=== PATIENT | male | born 1935 | race Caucasian/White ===

== ENCOUNTER 2017-06-21 14:55 | Emergency (ER) | payer MEDICARE, OTHER ==
[2017-06-21] MEDS ORDERED: ASPIRIN 81 MG CHEWABLE CTB PO ONE (14:59)
[2017-06-21 15:13] LABS: BASOPHILS % (AUTO) 1 % (0-3); EOSINOPHILS % (AUTO) 8 % (0-9); HEMATOCRIT 34 % (39-53); MEAN CORPUSCULAR HGB CONC 34.8 gm/dl (32.0-36.0); MEAN CORPUSCULAR VOLUME 95 fL (80-100); MONOCYTES % (AUTO) 9.6 % (0-12); NEUTROPHILS % (AUTO) 64.1 % (37-80)
[2017-06-21] MEDS ORDERED: MORPHINE SULFATE 10 MG/ML SOL IV ONE (15:18)
[2017-06-21] MEDS ORDERED: SODIUM CHLORIDE 0.9% FLUSH 10 ML SOL IV PRN (15:20)
[2017-06-21] MEDS ORDERED: MORPHINE SULFATE 10 MG/ML SOL ONE (15:21)
[2017-06-21] MEDS ORDERED: MAGNESIUM HYDROXIDE 30 ML SUS PO PRN (15:30)
[2017-06-21 15:31] LABS: CALCIUM 9.3 mg/dl (8.5-10.1); POTASSIUM 4.1 mMol/L (3.5-5.1)
[2017-06-21] MEDS ORDERED: MAGNESIUM HYDROXIDE 30 ML SUS ONE (15:32)
[2017-06-21] MEDS: SODIUM CHLORIDE 0.9% 1000ML 1,000 ML IV SCH ×2 (15:37→16:00)
[2017-06-21 16:09] VITALS: TEMP 97.2
[2017-06-21 17:08] VITALS: BP 109/61; PULSE 50; RESP 20; O2SAT 96
== END 2017-06-21 17:00 | disposition home or self-care (01) | DRG 313 ==
LOC: ED 14:55
DX: R07.89 Other chest pain (principal); E10.9 Type 1 diabetes mellitus without complications; E16.2 Hypoglycemia, unspecified; R10.84 Generalized abdominal pain; K59.00 Constipation, unspecified; Z79.4 Long term (current) use of insulin; R06.02 Shortness of breath
CPT/HCPCS: 36415; 71045; 80048; 82962; 83880; 84484; 85025; 85610; 93005; 96365; 96366; 96374; 99284; 99285; J2270

== ENCOUNTER 2017-10-24 19:14 | Emergency (ER) | payer MEDICARE, OTHER ==
[2017-10-24 19:31] VITALS: RESP 18; TEMP 96.4
[2017-10-24 21:09] VITALS: BP 125/73; PULSE 58; O2SAT 97
== END 2017-10-24 20:45 | disposition home or self-care (01) | DRG 639 ==
LOC: ED 19:14
DX: E11.649 Type 2 diabetes mellitus with hypoglycemia without coma (principal); Z79.4 Long term (current) use of insulin; R55 Syncope and collapse
CPT/HCPCS: 82962; 99282

== ENCOUNTER 2017-12-21 10:19 | Day surgery (SDC) | payer MEDICARE, OTHER ==
[2017-12-21] MEDS: CYCLOPENTOLATE 1% SOL ONE ×3 (10:59→11:06)
[2017-12-21] MEDS ORDERED: KETOROLAC/HOME 0.5% SOL OP ONE ×3 (10:59→11:07)
[2017-12-21] MEDS: TROPICAMIDE 1% OPHTH SOL ONE ×3 (10:59→11:06)
[2017-12-21] MEDS: PHENYLEPHRINE HCL 10% OPHTHAL SOL ONE ×2 (10:59→11:02)
[2017-12-21] MEDS ORDERED: GATIFLOXACIN 2.5 ML DROP SOL OP ONE ×2 (11:00→11:03)
[2017-12-21] MEDS: PROPARACAINE HCL 0.5% OPHTHALMIC SOL ONE ×3 (11:06→12:09)
[2017-12-21] MEDS ORDERED: LIDOCAINE HCL 2% MPF 10 ML SOL ONE (11:18)
[2017-12-21] MEDS ORDERED: POVIDONE IODINE 5% SOL ONE (11:19)
[2017-12-21] MEDS ORDERED: BSS W/ 0.5 MG P.F. EPI 1 BOTTLE ONE (11:19)
[2017-12-21] MEDS ORDERED: MIDAZOLAM 2 MG/2 ML SOL ONE (11:30)
[2017-12-21 11:36] VITALS: PULSE 50; O2SAT 96
[2017-12-21] MEDS ORDERED: ACETAZOLAMIDE 250 MG PO ONE (12:22)
[2017-12-21 12:47] VITALS: BP 153/75; RESP 20; TEMP 97.5
== END 2017-12-21 13:05 | disposition home or self-care (01) | DRG 125 ==
LOC: SURG 10:19
PROVIDERS: ATTEND Ophthalmology
DX: H25.89 Other age-related cataract (principal); E11.9 Type 2 diabetes mellitus without complications; Z79.4 Long term (current) use of insulin
CPT/HCPCS: 82962; J2250; A9270-GY